=== PATIENT | female | born 2005 | race Caucasian/White ===

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

== ENCOUNTER 2024-05-15 18:40 | Outpatient (REF) | payer OTHER, SELFPAY ==
[2024-05-17 12:19] LABS: GC Result Negative (Negative)
[2024-05-17 12:30] LABS: Chlamydia Result Positive (Negative)
== END 2024-05-15 18:41 | disposition home or self-care (01) ==
LOC: NCHCN 18:40
PROVIDERS: PCP Family Medicine; Visit Provider Family Medicine
DX: Z11.3 Encounter for screening for infections with a predominantly sexual mode of transmission (principal)
CPT/HCPCS: 87491; 87591

== ENCOUNTER 2024-05-21 11:46 | Outpatient (REF) | payer OTHER, SELFPAY ==
[2024-05-22 08:44] LABS: Hepatitis C Ab w Rflx HCV PCR Negative (Negative)
[2024-05-22 08:56] LABS: HIV-1/2 Ag & Ab Screen Negative (Negative)
[2024-05-23 10:12] LABS: Syphilis Serology (RPR) Negative (Negative)
[2024-05-23 12:18] LABS: Chlamydia Result Positive (Negative); GC Result Negative (Negative)
== END 2024-05-21 11:47 | disposition home or self-care (01) ==
LOC: NCHCN 11:46
PROVIDERS: PCP Family Medicine; Visit Provider Family Medicine
DX: Z11.59 Encounter for screening for other viral diseases (principal)
CPT/HCPCS: 86803; 87389; 87491; 87591; 86592

== ENCOUNTER 2024-11-14 16:33 | Outpatient (REF) | payer OTHER, SELFPAY ==
[2024-11-18 11:38] LABS: GC Result Negative (Negative)
[2024-11-18 13:16] LABS: Chlamydia Result Positive (Negative)
== END 2024-11-14 16:34 | disposition home or self-care (01) ==
LOC: NCHCN 16:33
PROVIDERS: PCP Family Medicine; Visit Provider Family Medicine
DX: Z11.3 Encounter for screening for infections with a predominantly sexual mode of transmission (principal)
CPT/HCPCS: 87491; 87591